=== PATIENT | female | born 1975 | race Caucasian/White ===

== ENCOUNTER → 2020-04-12 | Emergency (ER) | payer BC ==
[~2020-04-12] VITALS: Ht 172.7 cm; Wt 100.7 kg
[~2020-04-12] MED LIST: ATIVAN0.5 MG PO; BACTRIM DS 8001 TA1 PO; CEPHALEXIN500 M1 PO; FETZIMA PO; FIORICET 325 MG1 TAB PO; KEFLEX500 MG PO; LEVOFLOXACIN250 M2 PO; LISINOPRIL AND1 TA2 PO; LISINOPRIL HCTZ1 TAB PO; LISINOPRIL10 MG PO; NORCO 10-325 T1 EACH PO; NORCO 5-325 TA1 EACH PO; ZOFRAN ODT4 MG SL; ZOFRAN4 MG PO
[2020-04-12 06:52] LABS: BASO % 0.5 % (0.0-1.0); EOS # 0.1 10*3/uL (0.0-0.4); EOS % 1.2 % (1.0-4.0); HEMATOCRIT 45.1 % (37.0-47.0); LYMPH # 0.9 10*3/uL (1.3-4.4); LYMPH % 15.5 % (27.0-41.0); MEAN CELL VOLUME 88.6 fl (81.0-99.0); MEAN CORPUSCULAR HGB 29.9 pg (27.0-31.0); MEAN CORPUSCULAR HGB CONC 33.7 g/dl (33.0-37.0); MEAN PLATELET VOLUME 9.8 fl (9.6-12.3); MONO # 0.5 10*3/uL (0.1-1.0); MONO % 8.6 % (3.0-9.0); NEUT # 4.4 10*3/uL (2.3-7.9); PLATELET COUNT AUTOMATED 207 10*3/uL (130-400); RED BLOOD COUNT 5.09 10*6/uL (4.10-5.10); RED CELL DISTRI WIDTH 12.1 % (0-14.5); WHITE BLOOD COUNT 5.9 10*3/uL (4.8-10.8)
[2020-04-12 07:11] LABS: ALBUMIN 3.8 gm/dl (3.1-4.5); ALKALINE PHOSPHATASE 60 U/L (45-117); BUN 13 mg/dl (7-24); CHLORIDE 106 mmol/L (98-107); CREATININE 0.83 mg/dL (0.55-1.02); SGOT/AST 24 IU/L (3-35); SGPT/ALT 28 U/L (12-78); SODIUM 136 mmol/L (136-145); TOTAL PROTEIN 7.4 gm/dL (6.4-8.2)
[2020-04-12 07:12] LABS: POTASSIUM 4.1 mmol/L (3.5-5.1)
[2020-04-12 08:35] LABS: BILIRUBIN NEGATIVE (NEGATIVE); BLOOD NEGATIVE (NEGATIVE); CLARITY CLOUDY (CLEAR); COLOR YELLOW (YELLOW); GLUCOSE NEGATIVE (NEGATIVE); KETONE 2+ (NEGATIVE); SPECIFIC GRAVITY 1.025 (1.005-1.030); UROBILINOGEN 0.2 E.U./dl (0.2-1.0)
[2020-04-12 08:36] LABS: BACTERIA 4+; EPITHELIAL CELLS 16-20; LEUKO ESTERASE 2+ (NEGATIVE); NITRITE NEGATIVE (NEGATIVE); WBC 41-50 wbc/hpf (0-5)
== END ==
LOC: ED 05:32
PROVIDERS: Emergency Medicine
DX: B34.9 Viral infection, unspecified (principal); R50.9 Fever, unspecified; R51 Headache; R11.0 Nausea; M79.10 Myalgia, unspecified site; I10 Essential (primary) hypertension; Z20.828 Contact with and (suspected) exposure to other viral communicable diseases; Z79.899 Other long term (current) drug therapy

== ENCOUNTER 2022-08-02 15:49 | Inpatient (IN) | payer SELFPAY ==
[~2022-08-02] VITALS: Ht 172.7 cm; Wt 126.6 kg
[2022-08-02 16:11] VITALS: BP 175/84
[2022-08-02] MEDS ORDERED: LAMOTRIGINE200 MG PO (16:43)
[2022-08-02] MEDS ORDERED: ALPRAZOLAM2 MG PO (16:43)
[2022-08-02] MEDS ORDERED: SERTRALINE HYDR50 MG PO (16:44)
[2022-08-02 18:49] LABS: BASO % 0.5 % (0.0-1.0); EOS # 0.1 10*3/uL (0.0-0.4); EOS % 0.9 % (1.0-4.0); HEMATOCRIT 45.9 % (37.0-47.0); LYMPH % 16.9 % (27.0-41.0); MEAN CELL VOLUME 96.4 fl (81.0-99.0); MEAN CORPUSCULAR HGB 32.6 pg (27.0-31.0); MEAN CORPUSCULAR HGB CONC 33.8 g/dl (33.0-37.0); MEAN PLATELET VOLUME 8.8 fl (9.6-12.3); MONO # 0.3 10*3/uL (0.1-1.0); MONO % 5.5 % (3.0-9.0); NEUT # 4.3 10*3/uL (2.3-7.9); PLATELET COUNT AUTOMATED 277 10*3/uL (130-400); RED BLOOD COUNT 4.76 10*6/uL (4.10-5.10); RED CELL DISTRI WIDTH 13.1 % (0-14.5); WHITE BLOOD COUNT 5.6 10*3/uL (4.8-10.8)
[2022-08-02 19:00] LABS: ACT PARTIAL THROMBO TIME 26.3 SECONDS (20.0-32.1); INTERNATIONAL NORM RATIO 0.9 (2.0-3.5)
[2022-08-02 19:05] LABS: ALKALINE PHOSPHATASE 75 U/L (45-117); BUN 8 mg/dl (7-24); CHLORIDE 103 mmol/L (98-107); POTASSIUM 4.2 mmol/L (3.5-5.1); SGOT/AST 63 IU/L (3-35); SGPT/ALT 59 U/L (12-78); SODIUM 138 mmol/L (136-145); TOTAL PROTEIN 8.4 gm/dL (6.4-8.2)
[2022-08-02 19:12] LABS: BETA-HCG, QUANT < 1.0 mIU/mL (1-3)
[2022-08-02 19:32] LABS: BILIRUBIN Negative (Negative); BLOOD Negative (Negative); CLARITY Cloudy (Clear); COLOR Yellow (Yellow); GLUCOSE Negative (Negative); KETONE 2+ (Negative); LEUKO ESTERASE 1+ (Negative); NITRITE Negative (Negative); PH 5.5 (4.5-8.0)
[2022-08-02 19:40] LABS: URINE AMPHETAMINES < 1000 (1000ng/ml); URINE BARBITURATES < 200 (200ng/ml); URINE BENZODIAZEPINES > 200 (200ng/ml); URINE CANNABINOIDS (THC) < 50 (50ng/ml); URINE COCAINE < 300 (300ng/ml); URINE METHADONE < 300 (300ng/ml); URINE OPIATES < 300 (300ng/ml)
[2022-08-02 19:44] LABS: BACTERIA 2+
[2022-08-02 19:46] LABS: URINE PHENCYCLIDINE < 25 (25ng/ml)
[2022-08-03] VITALS (10 sets, daily range): BP systolic 150–186; BP diastolic 70–119
[2022-08-03 05:32] LABS: BUN 12 mg/dl (7-24); CHLORIDE 105 mmol/L (98-107); SGOT/AST 44 IU/L (3-35); SGPT/ALT 47 U/L (12-78); SODIUM 141 mmol/L (136-145)
[2022-08-03 05:36] LABS: ALKALINE PHOSPHATASE 63 U/L (45-117); CHOLESTEROL 155 mg/dL (<200); LDL CHOLESTEROL 45 mg/dL (9-159); TOTAL PROTEIN 7.4 gm/dL (6.4-8.2); TRIGLYCERIDES 69 mg/dl (<150)
[2022-08-03 06:06] LABS: BASO % 0.7 % (0.0-1.0); EOS # 0.1 10*3/uL (0.0-0.4); EOS % 2.9 % (1.0-4.0); HEMATOCRIT 43.5 % (37.0-47.0); LYMPH % 24.5 % (27.0-41.0); MEAN CORPUSCULAR HGB 33.1 pg (27.0-31.0); MEAN CORPUSCULAR HGB CONC 33.8 g/dl (33.0-37.0); MEAN PLATELET VOLUME 9.2 fl (9.6-12.3); MONO # 0.4 10*3/uL (0.1-1.0); MONO % 9.8 % (3.0-9.0); NEUT # 2.6 10*3/uL (2.3-7.9); NEUT % 61.9 % (47.0-73.0); PLATELET COUNT AUTOMATED 228 10*3/uL (130-400); RED BLOOD COUNT 4.44 10*6/uL (4.10-5.10); RED CELL DISTRI WIDTH 13.1 % (0-14.5); WHITE BLOOD COUNT 4.2 10*3/uL (4.8-10.8)
[2022-08-04] VITALS: BP 154/85
[2022-08-04 08:00] VITALS: BP 153/84
[2022-08-04 12:00] VITALS: BP 155/85
[2022-08-04 16:00] VITALS: BP 147/89
[2022-08-04 20:00] VITALS: BP 147/77
[2022-08-05] VITALS: BP 113/70; BP 136/83
[2022-08-05 08:00] VITALS: BP 135/84
[2022-08-05] MEDS ORDERED: NORVASC5 MG PO (13:54)
== END 2022-08-05 14:50 | disposition home or self-care (01) | DRG 897 ==
LOC: ED 15:49 → EDHOLD 18:43 → 4E 18:43
PROVIDERS: Emergency Medicine; Student in an Organized Health Care Education/Training Program; ADMIT Internal Medicine; ATTEND Internal Medicine
DX: F10.239 Alcohol dependence with withdrawal, unspecified (principal); F33.9 Major depressive disorder, recurrent, unspecified; I16.0 Hypertensive urgency; F41.9 Anxiety disorder, unspecified; G43.909 Migraine, unspecified, not intractable, without status migrainosus; I10 Essential (primary) hypertension; R82.71 Bacteriuria; R73.9 Hyperglycemia, unspecified; D72.819 Decreased white blood cell count, unspecified; R74.01 Elevation of levels of liver transaminase levels; E88.09 Other disorders of plasma-protein metabolism, not elsewhere classified; Z98.51 Tubal ligation status; Z98.84 Bariatric surgery status; Z80.1 Family history of malignant neoplasm of trachea, bronchus and lung; Z83.6 Family history of other diseases of the respiratory system

== ENCOUNTER → 2022-11-04 | Outpatient (CLI) | payer SELFPAY ==
[~2022-11-04] MED LIST changes: +ALPRAZOLAM2 MG PO; +LAMOTRIGINE200 MG PO; +NORVASC5 MG PO; +SERTRALINE HYDR50 MG PO
== END | disposition home or self-care (01) ==
LOC: LAB 11:11
PROVIDERS: ATTEND Internal Medicine
DX: Z02.1 Encounter for pre-employment examination (principal)